=== PATIENT | female | born 1980 | race Caucasian/White ===

== ENCOUNTER 2017-12-11 14:16 | Emergency (ER) | payer OTHER ==
[2017-12-11] MEDS ORDERED: Lactated Ringer's 1,000 ML IV STA (16:37)
--- NOTE | 2017-12-11 16:49 | ED PDOC ---
HPI: Female Pain Time Seen by Provider: 12/11/17 16:23 Chief Complaint (Nursing): Female Genitourinary Chief Complaint (Provider): Vaginal Bleeding History Per: Patient History/Exam Limitations: no limitations Onset/Duration Of Symptoms: Other (many months) Current Symptoms Are (Timing): Still Present Additional Complaint(s): 37 y/o female with a pmhx of iron deficiency anemia and fibroids presents to ER for evaluation of intermittent vaginal bleeding ongoing for many months. Patient reports that due to fibroids she would have prolonged heavy periods lasting 2 weeks. She also reports that on 11/08/17 she was started on Norethindrone 0.35mg. She states that she started her period on 11/14/17 and has been continuing to bleed longer and heavier than before she began the medication. She reports lightheadedness and fatigue. She denies bleeding elsewhere, chest pain, shortness of breath, or any sensation of near fainting. PMD: Clinic Past Medical History Reviewed: Historical Data, Nursing Documentation, Vital Signs Vital Signs: Last Vital Signs Temp 98.7 F 12/11/17 15:12 Pulse 74 12/11/17 15:12 Resp 18 12/11/17 15:12 BP 133/83 12/11/17 15:12 Pulse Ox 100 12/11/17 15:12 - Medical History PMH: Anemia (iron deficiency), Hepatitis (C), HIV Other PMH: Fibroids - Surgical History Surgical History: No Surg Hx - Family History Family History: States: Unknown Family Hx - Social History Current smoker - smoking cessation education provided: Yes Alcohol: None Drugs: Denies - Home Medications Home Medications: Ambulatory Orders Medication Instructions Recorded Mag&Al/Simet/Diphen/Lido [First 5 ml MM Q6 #1 kit 06/08/16 Magic Mouthwash] Ferrous Sulfate [Feosol] 325 mg PO BID #30 tab 12/11/17 Naproxen [Naprosyn] 1 tab PO BID PRN #30 tab 12/11/17 - Allergies Allergies/Adverse Reactions: Allergies Allergy/AdvReac Type Severity Reaction Status Date / Time No Known Allergies Allergy Verified 06/08/16 14:20 Review of Systems ROS Statement: Except As Marked, All Systems Reviewed And Found Negative Constitutional: Positive for: Other (fatigue) Cardiovascular: Positive for: Light Headedness. Negative for: Chest Pain Respiratory: Negative for: Shortness of Breath Genitourinary Female: Positive for: Vaginal Bleeding Neurological: Positive for: Dizziness Physical Exam - Reviewed Nursing Documentation Reviewed: Yes Vital Signs Reviewed: Yes - Physical Exam Appears: Positive for: Well, No Acute Distress Skin: Positive for: Warm, Dry, Pallor - Laboratory Results Result Diagrams: 12/11/17 17:12 12/11/17 17:08 - ECG O2 Sat by Pulse Oximetry: 100 (RA) Pulse Ox Interpretation: Normal Medical Decision Making Medical Decision Makin:37 Initial Impression: Abnormal vaginal bleeding with hx of fibroids. Differential diagnoses include, but are not limited to anemia, coagulopathy, fibroids, adverse medication reaction. Plan: --Blood type and screen --CMP --Urine --Urine dipstick --CBC --PTT/PT --Lactated Ringer's 1,000 mls --Toradol 15mg IVP --IV Insertion --Reevaluation Lab demonstrate hgb 9.6. No emergently significant abnormalities. MEJIA Holliday OB customer retention specialist. Recommends patient continue norethindrone as prescribed and to be prescribed ferrous sulfate. Scribe Attestation: Documented by Kilo Alvarez, acting as a scribe for Elaine Mc MD. Provider Scribe Attestation: All medical record entries made by the Scribe were at my direction and personally dictated by me. I have reviewed the chart and agree that the record accurately reflects my personal performance of the history, physical exam, medical decision making, and the department course for this patient. I have also personally directed, reviewed, and agree with the discharge instructions and disposition. Disposition - Clinical Impression Clinical Impression: Fibroid - Disposition Referrals: [facility] [Outside] [facility] [Outside] (CALL TO SCHEDULE APPOINTMENT THIS WEEK. CALL [facility] [employer] [facility] IF YOU HAVE ANY DIFFICULTY WITH SCHEDULING FOLLOW UP.) Disposition: Routine/Home Disposition Time: 18:41 Condition: STABLE Prescriptions: Ferrous Sulfate [Feosol] 325 mg PO BID #30 tab Naproxen [Naprosyn] 1 tab PO BID PRN #30 tab PRN Reason: Pain Instructions: Uterine Fibroids
[2017-12-11 17:21] LABS: BASO # 0.1 K/uL (0.0-0.2); EOS # 0.2 K/uL (0.0-0.7); HEMOGLOBIN 9.6 g/dL (12.0-16.0); LYMPH # 1.9 K/uL (1.0-4.3); LYMPH % 36.8 % (20.0-40.0); MEAN CELL VOLUME 93.1 fl (81.0-99.0); MEAN CORPUSCULAR HEMOGLOBIN 31.6 pg (27.0-31.0); MEAN PLATELET VOLUME 9.7 fl (7.2-11.7); MONO # 0.4 K/uL (0.0-0.8); MONO % 6.9 % (0.0-10.0); NEUT # 2.7 K/uL (1.8-7.0); NEUT % 52.3 % (50.0-75.0); NRBC % 0.1 % (0.0-0.0); RBC 3.03 Mil/uL (3.80-5.20); RED CELL DISTRIBUTION WIDTH 14.1 % (11.5-14.5); WHITE BLOOD COUNT 5.1 K/uL (4.8-10.8)
[2017-12-11 17:28] LABS: ALB/GLOB RATIO 1.3 (1.0-2.1); ALT/SGPT 23 U/L (9-52); AST/SGOT 21 U/L (14-36); BLOOD UREA NITROGEN 10 mg/dl (7-17); CALCIUM 9.3 mg/dL (8.4-10.2); GFR AFRICAN-AMERICAN > 60; GFR NON-AFRICAN AMERICAN > 60
[2017-12-11 17:44] LABS: PARTIAL THROMBOPLASTIN TIME 31.8 Seconds (25.6-37.1); PROTHROMBIN TIME 10.9 Seconds (9.8-13.1)
[2017-12-11 19:01] VITALS: BP 112/78; PULSE 72; RESP 20; TEMP 98; O2SAT 98
== END 2017-12-11 19:00 | disposition home or self-care (01) ==
LOC: H.ER 14:16
DX: D25.9 Leiomyoma of uterus, unspecified (principal); D50.9 Iron deficiency anemia, unspecified
CPT/HCPCS: 80053; 85025; 85610; 85730; 86850; 86900; 96361; 96374; 99283; J1885; J7120